=== PATIENT | male | born 1990 | race Caucasian/White ===

== ENCOUNTER 2025-01-11 14:02 | Emergency (ER) | payer MEDICAID ==
[~2025-01-11] VITALS: Ht 182.9 cm; Wt 102.6 kg
[2025-01-11 14:03] VITALS: TEMP 98.6
[2025-01-11 14:19] LABS: LEUKOCYTE ESTERASE ,URINE NEGATIVE (Neg); NITRITES, URINE NEGATIVE (Neg); OCCULT BLOOD,URINE NEGATIVE (Neg)
[2025-01-11 14:22] LABS: UA COLLECTION TYPE CLN CATCH MIDSTREAM
[2025-01-11 14:38] LABS: MEAN PLATELET VOLUME 9.2 FL (7.4-10.4); RED CELL DISTRIBUTION WIDTH 13.1 % (11.5-14.5)
[2025-01-11 14:49] LABS: CREATININE 1.17 MG/DL (0.60-1.10); TOTAL CARBON DIOXIDE 31.2 MMOL/L (24-32); eCRCL 99 ML/MIN; eGFR 72 ML/MIN
--- NOTE | 2025-01-11 15:12 | RADIOLOGY REPORT ---
Indication: Testicle Pain Technique: Real-time ultrasound images through the scrotum. Comparison: None Findings: Right testicle measures 3.7 x 3.1 x 3.1 cm. It has normal echogenicity and echotexture, with no focal solid or cystic mass. There is normal flow on color Doppler, with normal waveforms. The right epididymal head measures 1.6 cm, and has no focal masses. Left testicle measures 4.3 x 2.9 x 3.7 cm. It has normal echogenicity and echotexture, with no focal solid or cystic mass. Increased flow to the left testicle. The left epididymal head measures 1.5 cm, and has no focal masses. There is no hydrocele or varicocele on either side. Impression: Increased flow to the left testicle. Correlate for orchitis and other etiologies.
[2025-01-11] MEDS ORDERED: DOXY-347 PO (15:40)
--- NOTE | 2025-01-11 15:42 | Physician Documentation ---
History of Present Illness ~ Chief Complaint: Testicular Pain Stated Complaint: CLI REFERRED Time Seen by MD: 15:10 HPI 34-year-old male presents with proximally two weeks of testicular discomfort particularly on the left testicle. He states that the testicle is in a retrac celina position in his painful to touch. Says he is sexually active with his girlfriend. Denies any dysuria discharge or burning urination denies any fevers. Medication Reconciliation Allergies: Coded Allergies: No Known Allergies (Unverified , 01/11/25) Scheduled Doxycycline Monohydrate (Doxycycline Monohydrate), 1 CAP PO Q12H Review of Systems All Other Systems at this time: Reviewed and Negative ROS As stated above in the HPI, otherwise all systems are reviewed and negative. Physical Exam Vital Signs: Temperature: 98.6, Source: Oral, Heart Rate: 109, Respiratory Rate: 16, BP: 145/83, Pulse Oximetry: 99, Weight: 102.600 Oxygen Flow Rate: 0 Physical Exam General: Alert, no apparent distress. genitourinary: Testicle appears slightly retracted ,no swelling no discharge, no lesions Extremities: Normal range of motion, no deformity. Neurologic: Oriented x4. Psychiatric: Normal mood and affect. Skin: Normal color, warm and dry. No edema, no ecchymosis. Progress Results/Orders Results/Orders Orders - MARIE GRIFFIN PHYSICIAN PRACTICE MARKET MANAGER Chlam/Gc Amp Ur (01/11/25 15:27) Completed Orders - MARIE GRIFFIN PHYSICIAN PRACTICE MARKET MANAGER Ceftriaxone Im Kit W/Lidocaine (Rocephin (01/11/25 15:35) Doxycycline 100mg Capsule (Vibramycin 10 (01/11/25 15:31) Medications Received in ER Medications (Trade) Dose Ordered Sig/Radha Route PRN Reason Start Time Stop Time Status Last Admin Dose Admin (Rocephin 1GM IM kit (w/lidocaine diluent)) 1,000 mg ONCE ONCE IM 01/11/25 15:35 01/11/25 15:36 DC 01/11/25 16:09 1,000 MG (VIBRAMYCIN 100mg capsule) 100 mg ONCE STAT PO 01/11/25 15:31 01/11/25 15:33 DC 01/11/25 16:09 100 MG Vital Signs 01/11/25 01/11/25 14:03 16:19 Temp 98.6 Pulse 109 76 Resp 16 16 B/P (MAP) 145/83 124/91 Pulse Ox 99 98 O2 Flow Rate 0 Laboratory Tests Test 01/11/25 14:05 01/11/25 14:08 01/11/25 14:22 Urine Specimen Description Cln catch midstream Urine Color Yellow Urine Clarity Clear Urine pH 6.0 Urine Specific Polo 1.020 Urine Protein Negative Urine Glucose (UA) Negative Urine Ketones Negative Urine Occult Blood Negative Urine Nitrite Negative Urine Bilirubin Negative Urine Urobilinogen 0.2 Urine Leukocyte Esterase Negative Urine Culture Indicated Not ind Volume Urine Centrifuged 10 ml Urine Comment White Blood Count 7.8 Red Blood Count 5.46 Hemoglobin 16.0 Hematocrit 47.6 Mean Corpuscular Volume 87.3 Mean Corpuscular Hemoglobin 29.2 Mean Corpuscular Hemoglobin Concent 33.5 Red Cell Distribution Width 13.1 Platelet Count 193 Mean Platelet Volume 9.2 Neutrophils (%) (Auto) 53.5 Lymphocytes (%) (Auto) 37.6 Monocytes (%) (Auto) 6.3 Eosinophils (%) (Auto) 2.0 Basophils (%) (Auto) 0.6 Neutrophils # (Auto) 4.2 Lymphocytes # (Auto) 2.9 Monocytes # (Auto) 0.5 Eosinophils # (Auto) 0.2 Basophils # (Auto) 0.0 CBC Comment Sodium Level 144 Potassium Level 3.6 Chloride Level 107 Carbon Dioxide Level 31.2 Anion Gap 6 L Blood Urea Nitrogen 10 Creatinine 1.17 H Estimated GFR/1.73 m2 72 BUN/Creatinine Ratio 8.5 L Glucose Level 94 Calcium Level 9.0 Total Bilirubin 0.5 Aspartate Amino Transf (AST/SGOT) 21 Alanine Aminotransferase (ALT/SGPT) 41 Alkaline Phosphatase 65 Total Protein 7.8 Albumin 4.4 Globulin 3.4 Albumin/Globulin Ratio 1.3 Lipase 55 Chemistry Comments Medical Decision Making Additional information obtaine: old records Findings Based on the ultrasound and presentation of this patient I am highly suspicious of orchitis or epididymitis Patient is sexually active I ordered a gonorrhea and chlamydia test even though he has not been complaining of discharge for. Treated him empirically for STI and have him follow up in the outpatient setting for further evaluation Urinary Diff Dx:Considerations: Include: Impaction Genital Diff Dx:Considerations: Include: Abscess, Balanitis, Balanoposthitis, Cellulitis, Epididymitis, Entrapment injury, Agapito's gangrene, Foreign body, Facture penis, Hydrocele, Inguinal hernia, Post-op Complication, Paraphimosis, Prostatitis, Priapism, Syphilis, Testicular torsion, Torsion-epididymis, Torsion-appendiceal, Urinary retention, Urethritis, Urethritis-chlamydial, Urethritis-gonococcal, UTI, Other Departure Disposition: HOME / SELF CARE / HOMELESS Impression: Primary Impression: Pain in testicle Additional Impression: Orchitis and epididymitis Condition: Improved Discharge Instructions: Orchitis Referrals: NO PRIMARY CARE PROVIDER (PCP) Prescriptions Doxycycline Monohydrate (Doxycycline Monohydrate) 100 Mg Capsule 1 CAP PO Q12H for 10 Days, #20 CAP Prov: MARIE GRIFFIN NP 01/11/25 Education Educated: Patient Educated regarding: diagnosis Signature Scribe Signature: 5 Attestation: Scribed for Marie Griffin Orbitread Operator by Marie Velasquez NP . 01/11/25 15:41 MARIE GRIFFIN NP Jan 11, 2025 15:42
[2025-01-11] MEDS: DOXYCYCLINE 100MG CAPSULE PO STA (16:09)
[2025-01-11] MEDS: CefTRIAXone 1000mg IM Kit (w/lidocaine diluent) IM ONE (16:09)
[2025-01-11 16:19] VITALS: BP 124/91; PULSE 76; RESP 16; O2SAT 98
== END 2025-01-11 16:18 | disposition home or self-care (01) ==
LOC: ER 14:03
DX: N45.3 Epididymo-orchitis (principal); N50.812 Left testicular pain
CPT/HCPCS: 36415; 76870; 80053; 81003; 83690; 85025; 87491; 87591; 93976; 96372; 99285; J0696